=== PATIENT | female | born 1965 | race African-American/Black ===

== ENCOUNTER 2018-06-14 07:03 | Emergency (ER) | payer MEDICAID ==
[~2018-06-14] VITALS: Ht 165.1 cm; Wt 54.0 kg
[2018-06-14 07:05] VITALS: BP 174/97
== END 2018-06-14 07:26 | disposition home or self-care (01) ==
LOC: ER 07:03
DX: J20.9 Acute bronchitis, unspecified (principal); I10 Essential (primary) hypertension; I69.351 Hemiplegia and hemiparesis following cerebral infarction affecting right dominant side; F17.210 Nicotine dependence, cigarettes, uncomplicated; Z71.6 Tobacco abuse counseling
CPT/HCPCS: 99283